=== PATIENT | female | born 1940 | race Caucasian/White ===

== ENCOUNTER 2023-11-11 10:12 | Inpatient (IN) | payer MEDICARE, MEDICAID ==
[~2023-11-11] VITALS: Ht 157.5 cm; Wt 56.7 kg
[~2023-11-11 10:12] MED LIST: AMLO5TAB88 PO; AMOX250S70 GT; AZIT500T8 MT; CALC-38 PO; DEXTL PO; DONE10TA11 MT
[2023-11-11 11:04] LABS: BASOPHILS % 0.8 % (0.0-2.0); CHLORIDE 110 mEq/L (98-107); EOSINOPHILS % 5.2 % (0.0-5.0); HEMOGLOBIN. 11.3 g/dL (12.0-16.0); LYMPHOCYTES % 33.6 % (20.0-50.0); MEAN CORPUSCULAR HEMOGLOBIN 28.1 pg (28.0-32.0); MEAN CORPUSCULAR HGB CONC 33.4 g/dL (31.0-37.0); MEAN CORPUSCULAR VOLUME 84.2 fL (81.0-99.0); MEAN PLATELET VOLUME 8.3 fl (7.4-10.4); MONOCYTES % 9.4 % (2.0-8.0); PLATELET 264 x1000/uL (130-400); POTASSIUM 3.6 mEq/L (3.5-5.1); RED BLOOD CELL COUNT 4.03 mill/uL (4.2-5.4); RED CELL DISTRIBUTION WIDTH 15.6 % (11.6-14.6); SODIUM 138 mEq/L (136-145); WHITE BLOOD COUNT 7.3 x1000/uL (4.5-11.0)
[2023-11-11 11:05] LABS: CALCIUM 8.2 mg/dL (8.7-10.4); CARBON DIOXIDE 24 mEq/L (21-32)
[2023-11-11 11:10] LABS: CREATININE 1.4 mg/dL (0.6-1.0); GLUCOSE 157 mg/dL (70-105); UREA NITROGEN BLOOD 18 mg/dL (9-23)
[2023-11-11 11:13] LABS: TROPONIN I HIGH SENSITIVITY 16 ng/L (3.0-34)
[2023-11-11 13:12] LABS: TROPONIN I HIGH SENSITIVITY 16 ng/L (3.0-34)
[2023-11-11] MEDS ORDERED: IOHEXOL-350 100 ML BOTTLE ONE (23:12)
[2023-11-11] MEDS ORDERED: GUAIFENESIN 200MG/10ML SUGAR FREE UDC PO PRN (23:45)
[2023-11-11] MEDS ORDERED: DOCUSATE SODIUM 100MG CAPSULE PO PRN (23:45)
[2023-11-11] MEDS ORDERED: DEXTROSE 50% WATER 50ML SYRINGE IV PRN (23:45)
[2023-11-11] MEDS ORDERED: ACETAMINOPHEN 325MG TABLET PO PRN (23:45)
[2023-11-11] MEDS ORDERED: ONDANSETRON HCL 4MG/2ML INJ IV PRN (23:45)
[2023-11-11] MEDS ORDERED: MAGNESIUM/ALUMINUM HYDROXIDE/SIMETHICONE 30ML UDC PO PRN (23:45)
[2023-11-11] MEDS ORDERED: IPRATROPIUM/ALBUTEROL 0.5-3(2.5)MG/3ML NEB HHN PRN (23:45)
[2023-11-11] MEDS: CLONIDINE 0.1MG TABLET PO PRN (23:56)
[2023-11-12] VITALS (7 sets, daily range): BP systolic 131–192; BP diastolic 68–98; PULSE 68–74; RESP 19–20; TEMP 36.00288–36.7516; O2SAT 96–100
[2023-11-12 06:44] LABS: BASOPHILS % 0.6 % (0.0-2.0); EOSINOPHILS % 4.5 % (0.0-5.0); HEMATOCRIT. 32.3 % (36.0-48.0); HEMOGLOBIN. 10.7 g/dL (12.0-16.0); LYMPHOCYTES % 39.6 % (20.0-50.0); MEAN CORPUSCULAR HEMOGLOBIN 27.9 pg (28.0-32.0); MEAN CORPUSCULAR HGB CONC 33.1 g/dL (31.0-37.0); MEAN CORPUSCULAR VOLUME 84.4 fL (81.0-99.0); MEAN PLATELET VOLUME 8.8 fl (7.4-10.4); MONOCYTES % 12.3 % (2.0-8.0); PLATELET 261 x1000/uL (130-400); RED BLOOD CELL COUNT 3.83 mill/uL (4.2-5.4); WHITE BLOOD COUNT 6.5 x1000/uL (4.5-11.0)
[2023-11-12] MEDS: PANTOPRAZOLE SODIUM 40 MG/VIAL IV SCH (06:59)
[2023-11-12] MEDS: BLOOD SUGAR DIAGNOSTIC STRIP TEST SCH (06:59)
[2023-11-12] MEDS: INSULIN LISPRO 100 UNITS/ML SUBCUT SCH (07:01)
[2023-11-12 07:03] LABS: CALCIUM 8.2 mg/dL (8.7-10.4); POTASSIUM 3.5 mEq/L (3.5-5.1)
[2023-11-12 07:09] LABS: CREATININE 1.5 mg/dL (0.6-1.0)
[2023-11-12 07:11] LABS: T4 FREE 0.8 ng/dL (0.89-1.76); THYROID STIMULATING HORMONE 8.43 uIU/mL (0.55-4.78)
[2023-11-12] MEDS: ENOXAPARIN 30MG/0.3ML SYR SUBCUT SCH (09:35)
[2023-11-12] MEDS: HYDROCHLOROTHIAZIDE 25MG TABLET PO SCH (22:11)
[2023-11-12] MEDS: DONEPEZIL HCL 10MG TABLET PO SCH (22:11)
[2023-11-13] VITALS: BP 148/60; PULSE 64; RESP 20; TEMP 36.55848; O2SAT 97
[2023-11-13 04:00] VITALS: BP 155/73; PULSE 65; RESP 20; TEMP 36.55848; O2SAT 95
[2023-11-13 07:31] LABS: CARBON DIOXIDE 28 mEq/L (21-32); CHLORIDE 106 mEq/L (98-107); POTASSIUM 3.8 mEq/L (3.5-5.1); SODIUM 138 mEq/L (136-145)
[2023-11-13 07:32] LABS: CALCIUM 8.2 mg/dL (8.7-10.4)
[2023-11-13 07:37] LABS: BASOPHILS % 0.6 % (0.0-2.0); CREATININE 1.9 mg/dL (0.6-1.0); EOSINOPHILS % 4.2 % (0.0-5.0); GLUCOSE 138 mg/dL (70-105); HEMATOCRIT. 33.2 % (36.0-48.0); HEMOGLOBIN. 10.7 g/dL (12.0-16.0); LYMPHOCYTES % 40.2 % (20.0-50.0); MEAN CORPUSCULAR HEMOGLOBIN 27.3 pg (28.0-32.0); MEAN CORPUSCULAR HGB CONC 32.2 g/dL (31.0-37.0); MEAN CORPUSCULAR VOLUME 84.7 fL (81.0-99.0); MEAN PLATELET VOLUME 8.7 fl (7.4-10.4); MONOCYTES % 9.6 % (2.0-8.0); NEUTROPHILS % 45.4 % (40.0-76.0); PLATELET 269 x1000/uL (130-400); RED BLOOD CELL COUNT 3.92 mill/uL (4.2-5.4); RED CELL DISTRIBUTION WIDTH 15.6 % (11.6-14.6); UREA NITROGEN BLOOD 25 mg/dL (9-23); WHITE BLOOD COUNT 6.6 x1000/uL (4.5-11.0)
[2023-11-13 07:39] LABS: PHOSPHORUS 4.1 mg/dL (2.5-4.9)
[2023-11-13 08:00] VITALS: BP 127/70; PULSE 76; RESP 18; TEMP 36.22512; O2SAT 96
[2023-11-13 12:00] VITALS: BP_SYST 122; BP_SYST 166; BP_SYST 167; BP_SYST 183; BP_DIAS 52; BP_DIAS 66; BP_DIAS 70; BP_DIAS 81; PULSE 105; RESP 18; TEMP 36.6696; O2SAT 96
[2023-11-13 15:47] VITALS: BP 159/64; PULSE 76; RESP 20; TEMP 36.33624; O2SAT 98
[2023-11-13] MEDS: AMLODIPINE 10MG TABLET PO SCH (19:12)
[2023-11-13 20:00] VITALS: BP 162/63; PULSE 82; RESP 18; TEMP 36.3918; O2SAT 96
[2023-11-13] MEDS: SODIUM CHLORIDE 0.9% 1,000 ML IV ONE (22:15)
[2023-11-13] MEDS: HYDRALAZINE 20MG/ML VIAL IV PRN (23:44)
[2023-11-14] VITALS: BP 139/85; PULSE 76; RESP 19; TEMP 37.11408; O2SAT 95
[2023-11-14 04:00] VITALS: BP 116/45; PULSE 74; RESP 18; TEMP 36.114; O2SAT 100
[2023-11-14 07:02] LABS: BASOPHILS % 1.2 % (0.0-2.0); EOSINOPHILS % 3.4 % (0.0-5.0); HEMATOCRIT. 34.2 % (36.0-48.0); HEMOGLOBIN. 11.3 g/dL (12.0-16.0); LYMPHOCYTES % 37.2 % (20.0-50.0); MEAN CORPUSCULAR HEMOGLOBIN 27.6 pg (28.0-32.0); MEAN CORPUSCULAR VOLUME 83.5 fL (81.0-99.0); MONOCYTES % 9.1 % (2.0-8.0); NEUTROPHILS % 49.1 % (40.0-76.0); RED CELL DISTRIBUTION WIDTH 15.3 % (11.6-14.6); WHITE BLOOD COUNT 8.2 x1000/uL (4.5-11.0)
[2023-11-14 07:03] LABS: POTASSIUM 3.5 mEq/L (3.5-5.1)
[2023-11-14 07:04] LABS: CALCIUM 8.1 mg/dL (8.7-10.4)
[2023-11-14 07:08] LABS: CREATININE 2.2 mg/dL (0.6-1.0)
[2023-11-14 07:51] LABS: DIFFERENTIAL COMMENT 1; MEAN PLATELET VOLUME 9.5 fl (7.4-10.4); PLATELET 265 x1000/uL (130-400)
[2023-11-14 08:00] VITALS: BP 132/60; PULSE 77; RESP 16; TEMP 36.6696; O2SAT 100
[2023-11-14] MEDS ORDERED: FAMOTIDINE 20MG/2ML VIAL IV SCH (09:00)
[2023-11-14] MEDS: LOSARTAN 50 MG TABLET PO SCH (09:28)
[2023-11-14 12:00] VITALS: BP_SYST 122; BP_SYST 128; BP_SYST 130; BP_DIAS 60; BP_DIAS 62; BP_DIAS 66; PULSE 80; RESP 18; TEMP 36.44736; O2SAT 100
[2023-11-14] MEDS: ACETAMINOPHEN 325MG TABLET PO PRN (13:51)
[2023-11-14 16:00] VITALS: BP 130/60; PULSE 77; RESP 16; TEMP 36.61404; O2SAT 100
[2023-11-14] MEDS ORDERED: HYDR25TA PO (16:01)
[2023-11-14] MEDS ORDERED: LOSA50TA41 PO (16:01)
[2023-11-14] MEDS ORDERED: AMLO10TA80 PO (16:01)
[2023-11-14] MEDS ORDERED: ONDA4TAB50 MT (16:01)
[2023-11-14 18:29] VITALS: BP 132/62; PULSE 62; TEMP 98; O2SAT 98
== END 2023-11-14 19:45 | disposition home or self-care (01) | DRG 199 ==
LOC: ER 10:12 → EDBEDREQTM 11:46 → EDBEDREQ 11:46 → 7EST 22:36 → EDBEDREQTM 22:39 → EDBEDREQ 22:39
PROVIDERS: ADMIT Hospitalist; ATTEND Hospitalist
DX: I16.0 Hypertensive urgency (principal); N17.9 Acute kidney failure, unspecified; I27.20 Pulmonary hypertension, unspecified; E11.22 Type 2 diabetes mellitus with diabetic chronic kidney disease; D64.9 Anemia, unspecified; E78.00 Pure hypercholesterolemia, unspecified; F03.90 Unspecified dementia, unspecified severity, without behavioral disturbance, psychotic disturbance, mood disturbance, and anxiety; N18.9 Chronic kidney disease, unspecified; M54.50 Low back pain, unspecified; I12.9 Hypertensive chronic kidney disease with stage 1 through stage 4 chronic kidney disease, or unspecified chronic kidney disease; I25.10 Atherosclerotic heart disease of native coronary artery without angina pectoris; Z79.4 Long term (current) use of insulin; Z79.899 Other long term (current) drug therapy
CPT/HCPCS: 36415; 71045; 71275; 80048; 80061; 82962; 83735; 84100; 84439; 84443; 84484; 85025; 85379; 93005; 97166; 99285; J0360; J1650; J1815; J2470; Q9967

== ENCOUNTER 2024-03-25 19:05 | Emergency (ER) | payer MEDICARE, MEDICAID ==
[~2024-03-25] VITALS: Ht 160 cm; Wt 52.0 kg
[~2024-03-25 19:05] MED LIST changes: +AMLO10TA80 PO; -AMLO5TAB88 PO; -AMOX250S70 GT; -AZIT500T8 MT; -CALC-38 PO; +HYDR25TA PO; +LOSA50TA41 PO; +ONDA4TAB50 MT
[2024-03-25 19:08] VITALS: O2SAT 0
[2024-03-25 19:35] VITALS: BP 0/0; PULSE 0; RESP 0; O2SAT 0
== END 2024-03-25 22:00 ==
LOC: ER 19:05
DX: I46.9 Cardiac arrest, cause unspecified (principal); E11.9 Type 2 diabetes mellitus without complications; E78.00 Pure hypercholesterolemia, unspecified; I10 Essential (primary) hypertension; Z79.899 Other long term (current) drug therapy
CPT/HCPCS: 31500; 99291